=== PATIENT | male | born 2000 | race Caucasian/White ===

== ENCOUNTER 2019-12-26 15:00 | Emergency (ER) | payer MEDICAID ==
[~2019-12-26] VITALS: Ht 180.3 cm; Wt 72.7 kg
[2019-12-26 18:20] LABS: BASOPHILS % (AUTO) 0.4 % (0.0-2.0); EOSINOPHILS % (AUTO) 0.6 % (1.0-6.0); HEMATOCRIT 46.8 % (41-53); HEMOGLOBIN 15.7 g/dL (13.5-17.5); LYMPHOCYTES # (AUTO) 2.9 K/uL (1.0-4.8); LYMPHOCYTES % (AUTO) 38.8 % (22.0-44.0); MEAN CORPUSCULAR HEMOGLOBIN 29.9 pg (26.0-34.0); MEAN CORPUSCULAR HGB CONC 33.5 G/dL (31.0-37.0); MEAN CORPUSCULAR VOLUME 89 fL (80-100); MONOCYTES # (AUTO) 0.5 K/uL (0.1-1.0); MONOCYTES % (AUTO) 6.8 % (2.0-9.0); NEUTROPHILS % (AUTO) 53.4 % (40.0-70.0); PLATELET COUNT (AUTO) 350 K/uL (150-450); RED BLOOD CELL COUNT(AUTO) 5.25 MIL/uL (4.50-5.90); RED CELL DISTRIBUTION WIDTH 12.9 % (11.5-14.5)
[2019-12-26 18:31] LABS: ANION GAP 8 mmol/L (8-16); CALCIUM, TOTAL 8.8 mg/dL (8.8-10.5); CARBON DIOXIDE 31 mmol/L (22-29); CHLORIDE 104 mmol/L (98-107); CREATININE 0.97 mg/dL (0.60-1.30); GLOMERULAR FILTR. RATE CALC > 60 mL/min (>60); GLUCOSE,RANDOM 97 mg/dL (70-110); SODIUM SERUM 143 mmol/L (136-145); UREA NITROGEN, BLOOD 14 mg/dL (7-18)
[2019-12-26 18:36] LABS: ALANINE AMINOTRANSFERASE 22 U/L (12-78); ALBUMIN 4.2 g/dL (3.4-5.0); ALKALINE PHOSPHATASE 105 U/L (46-116); ASPARTATE AMINOTRANSFERASE 18 U/L (15-37); BILIRUBIN,TOTAL 0.4 mg/dL (0.1-1.0); TOTAL PROTEIN, SERUM 7.7 g/dL (6.4-8.2)
[2019-12-26 19:56] VITALS: BP 118/67
[2019-12-26 20:42] LABS: AMPHET/METH SCREEN,URINE NEGATIVE (NEGATIVE); BARBITURATE SCREEN, URINE NEGATIVE (NEGATIVE); BENZODIAZEPINES SCREEN,URINE NEGATIVE (NEGATIVE); CANNABINOID SCREEN,URINE POSITIVE (NEGATIVE); COCAINE SCREEN,URINE NEGATIVE (NEGATIVE); METHADONE SCREEN, URINE NEGATIVE (NEGATIVE); OPIATE SCREEN,URINE NEGATIVE (NEGATIVE)
[2019-12-26 20:43] LABS: PHENCYCLIDINE SCREEN,URINE NEGATIVE (NEGATIVE)
== END 2019-12-26 20:12 | disposition home or self-care (01) ==
LOC: EMS 15:06
DX: F32.9 Major depressive disorder, single episode, unspecified (principal); F41.9 Anxiety disorder, unspecified
CPT/HCPCS: 36415; 80053; 80307; 85025; 99284; G0480